=== PATIENT | male | born 1950 | race Asian ===

== ENCOUNTER 2020-05-18 10:22 | Outpatient (CLI) | payer MEDICARE, SELFPAY ==
--- NOTE | ~2020-05-18 | US_ITS ---
US renal BI 05/18/2020 11:12 Procedure: Realtime transabdominal ultrasound of the kidneys and bladder. Indication: Chronic renal disease Comparison: Findings: Renal echotexture is increased bilaterally without hydronephrosis, contour deforming mass o r renal calculus. There are bilateral renal cysts measuring 8 mm on the right and 1.4 cm on the left. The right kidney measures 9.5 cm and left kidney measures 9.7 cm. Bladder within normal limits. Impression: 1: Increased renal echotexture, consistent with chronic renal disease. 2: Small renal cysts. Reviewed, dictated and finalized at location B. Impression: 1: Increased renal echotexture, consistent with chronic renal disease. 2: Small renal cysts.
== END 2020-05-18 10:23 | disposition home or self-care (01) ==
PROVIDERS: PCP Family Medicine; Referring Provider Internal Medicine Medical Oncology
DX: I12.9 Hypertensive chronic kidney disease with stage 1 through stage 4 chronic kidney disease, or unspecified chronic kidney disease (principal); N18.30 Chronic kidney disease, stage 3 unspecified; N28.1 Cyst of kidney, acquired
CPT/HCPCS: 76775